=== PATIENT | female | born 1985 | race Caucasian/White ===

== ENCOUNTER 2018-10-13 13:45 | Emergency (ER) | payer OTHER ==
[~2018-10-13] VITALS: Ht 165.1 cm; Wt 116.1 kg
[2018-10-13] MEDS ORDERED: ELITE-OB 400 C1 EACH (14:13)
== END 2018-10-13 16:52 | disposition home or self-care (01) ==
LOC: ER 13:45
DX: L02.01 Cutaneous abscess of face (principal)

== ENCOUNTER 2018-12-03 05:21 | Inpatient (IN) | payer OTHER ==
[~2018-12-03] VITALS: Ht 165.1 cm; Wt 3.2 kg
[~2018-12-03 05:21] MED LIST: ELITE-OB 400 C1 EACH
== END 2018-12-06 13:30 | DRG 788 ==
LOC: LDR 05:21 → OB/GYN 15:09 → O/R 18:06 → OB/GYN 19:40
PROVIDERS: ADMIT Obstetrics & Gynecology
PROC: 3E0P7VZ Introduction of Hormone into Female Reproductive, Via Natural or Artificial Opening (ICD-10-PCS; 2018-12-03)
PROC: 3E033VJ Introduction of Other Hormone into Peripheral Vein, Percutaneous Approach (ICD-10-PCS; 2018-12-03)
PROC: 4A1HX4Z Monitoring of Products of Conception, Cardiac Electrical Activity, External Approach (ICD-10-PCS; 2018-12-03)
PROC: 10D00Z1 Extraction of Products of Conception, Low, Open Approach (ICD-10-PCS; principal; 2018-12-03 16:30)
DX: O61.0 Failed medical induction of labor (principal); Z3A.39 39 weeks gestation of pregnancy; Z37.0 Single live birth